=== PATIENT | male | born 1960 | race Caucasian/White ===

== ENCOUNTER 2024-09-05 13:26 | Outpatient (CLI) | payer OTHER ==
[2024-09-05] MEDS ORDERED: Magnevist 469MG/ML 20 ML VIAL ONE (14:32)
== END 2024-09-05 13:27 | disposition home or self-care (01) ==
LOC: CSHMRI 13:26
PROVIDERS: ATTEND Urology
DX: C61 Malignant neoplasm of prostate (principal)
CPT/HCPCS: 72197